=== PATIENT | female | born 1980 | race Caucasian/White ===

== ENCOUNTER → 2017-12-22 | Outpatient (CLI) | payer OTHER ==
[~2017-12-22] MED LIST: ISOVUE-370 76% 100ML VIAL (Q9967) As Ordered
== END ==
LOC: M RAD 08:42
DX: R10.9 Unspecified abdominal pain (principal)

== ENCOUNTER 2024-07-29 13:11 | Inpatient (IN) | payer MEDICAID, OTHER, SELFPAY ==
[~2024-07-29] VITALS: Ht 167.6 cm; Wt 94.9 kg
[2024-07-29 13:53] LABS: HEMATOCRIT 42.7 % (36.0-47.0); HEMOGLOBIN 14.9 g/dl (12.0-15.5); MEAN CORPUSCULAR HEMOGLOBIN 30.7 pg (27.0-33.0); MEAN CORPUSCULAR HGB CONC 34.9 g/dl (32.0-36.5); MEAN CORPUSCULAR VOLUME 87.9 fl (80.0-96.0); PLATELET COUNT, AUTOMATED 428 10^3/uL (150-450); RED BLOOD COUNT 4.86 10^6/uL (4.00-5.40); WHITE BLOOD COUNT 15.1 10^3/uL (4.0-10.0)
[2024-07-29 14:16] LABS: ETHYL ALCOHOL (ETHANOL) 0.003 % (0.000-0.010)
[2024-07-29 14:18] LABS: ALBUMIN 4.3 G/DL (3.2-5.2); ALKALINE PHOSPHATASE 79 U/L (46-116); ALT/SGPT 20 U/L (7.0-40); AST/SGOT 25 U/L (<34); BILIRUBIN,DIRECT 0.1 MG/DL (<0.4); BILIRUBIN,TOTAL 0.4 MG/DL (0.3-1.2); BLOOD UREA NITROGEN 18 MG/DL (9-23); CARBON DIOXIDE LEVEL 25 MMOL/L (20-31); CHLORIDE LEVEL 107 MMOL/L (98-107); CREATININE FOR GFR 1.03 MG/DL (0.55-1.30); GLOMERULAR FILTRATION RATE > 60.0 (>58); GLUCOSE, FASTING 109 MG/DL (60-100); POTASSIUM SERUM 4.3 MMOL/L (3.5-5.1); SALICYLATE LEVEL < 3.0 MG/DL (<30); SODIUM LEVEL 138 MMOL/L (136-145); TOTAL PROTEIN 7.7 G/DL (5.7-8.2)
[2024-07-29 14:22] LABS: THYROID STIMULATING HORMONE 3.688 uIU/ML (0.55-4.78)
[2024-07-29 15:19] LABS: AMPHETAMINES LEVEL URINE NEGATIVE (NEGATIVE); BARBITURATES URINE NEGATIVE (NEGATIVE); COCAINE METABOLITE URINE NEGATIVE (NEGATIVE)
[2024-07-29 15:20] LABS: BENZODIAZEPINES URINE NEGATIVE (NEGATIVE); CANNABINOIDS URINE NEGATIVE (NEGATIVE); METHADONE URINE NEGATIVE (NEGATIVE); OPIATES URINE NEGATIVE (NEGATIVE); PHENCYCLIDINE URINE NEGATIVE (NEGATIVE)
[2024-07-29] MEDS ORDERED: HOME MED LIST COMPLETE! XX SCH (16:00)
[2024-07-29] MEDS: CIPROFLOXACIN 500MG TABLET PO ONE (16:31)
[2024-07-29] MEDS: PHENAZOPYRIDINE 100 MG TAB PO ONE (16:31)
[2024-07-29] MEDS ORDERED: ACETAMINOPHEN TAB 650MG DOSE (2X325MG) PO PRN (20:10)
[2024-07-29] MEDS ORDERED: IBUPROFEN 400MG TAB PO PRN (20:10)
[2024-07-29] MEDS ORDERED: MAALOX 30 ML SUSP *UDC PO PRN (20:10)
[2024-07-29] MEDS ORDERED: MOM 30ML SUSPENSION UDC PO PRN (20:10)
[2024-07-30] MEDS: diphenhydrAMINE 25MG CAP PO PRN (02:49)
[2024-07-30] MEDS: traZODone 50 MG TAB PO PRN (02:49)
[2024-07-30 08:27] VITALS: BP 149/68; TEMP 97.8; O2SAT 95
[2024-07-30] MEDS: CEFDINIR 300 MG CAP (OMNICEF) PO SCH (09:42)
[2024-07-30 15:58] VITALS: BP 124/60; TEMP 97.7; O2SAT 98
[2024-07-30] MEDS: OLANZapine 5 MG TAB PO SCH (20:32)
[2024-07-30] MEDS: OLANZapine ORAL DISINTEGRATING TAB 5MG PO PRN (21:16)
[2024-07-31 06:24] VITALS: BP 151/65; TEMP 97.3; O2SAT 99
[2024-07-31 16:03] VITALS: BP 116/58; TEMP 98.9; O2SAT 97
[2024-08-01 06:23] VITALS: BP 141/77; TEMP 98.4; O2SAT 97
[2024-08-01] MEDS ORDERED: CEFD300CAP PO (09:03)
[2024-08-01] MEDS ORDERED: TRAZ-252 PO (09:03)
[2024-08-01] MEDS ORDERED: OLAN1TAB16 PO (09:03)
[2024-08-01] MEDS ORDERED: HYDR-3363 PO (09:03)
== END 2024-08-01 11:30 | disposition home or self-care (01) | DRG 751 ==
LOC: M ED 13:11 → M ED INP 20:09 → M PSY 21:02
PROVIDERS: ADMIT Psychiatry & Neurology Psychiatry; ATTEND Psychiatry & Neurology Psychiatry
DX: F29 Unspecified psychosis not due to a substance or known physiological condition (principal); R45.851 Suicidal ideations; N39.0 Urinary tract infection, site not specified; F17.200 Nicotine dependence, unspecified, uncomplicated; K58.1 Irritable bowel syndrome with constipation; Z90.79 Acquired absence of other genital organ(s)

== ENCOUNTER 2024-08-20 21:13 | Emergency (ER) | payer MEDICAID, OTHER ==
[~2024-08-20] VITALS: Ht 165.1 cm; Wt 103.9 kg
[~2024-08-20 21:13] MED LIST changes: +CEFD300CAP PO; +HYDR-3363 PO; -ISOVUE-370 76% 100ML VIAL (Q9967) As Ordered; +OLAN1TAB16 PO; +TRAZ-252 PO
[2024-08-20 21:16] VITALS: BP 141/75; TEMP 97.5; O2SAT 97
[2024-08-20] MEDS ORDERED: GABA-1172 PO (22:44)
[2024-08-20] MEDS ORDERED: VIST25CA PO (22:44)
[2024-08-20] MEDS ORDERED: QUET300T2 PO (22:44)
[2024-08-20] MEDS ORDERED: TRAZ-257 PO (22:44)
[2024-08-20] MEDS ORDERED: CITA20TA6 PO (22:44)
[2024-08-20] MEDS ORDERED: PRAZ2CAP PO (22:44)
[2024-08-20] MEDS ORDERED: CITA10TA7 PO (22:44)
[2024-08-20] MEDS: LORazepam 1 MG TAB PO ONE (23:50)
[2024-08-21] MEDS ORDERED: OLAN1TAB16 PO (01:26)
[2024-08-21] MEDS ORDERED: TRAZ-252 PO (01:26)
[2024-08-21] MEDS ORDERED: HYDR-3363 PO (01:26)
== END 2024-08-21 01:40 | disposition home or self-care (01) ==
LOC: M ED 21:13
DX: F41.9 Anxiety disorder, unspecified (principal); F32.A Depression, unspecified; F31.9 Bipolar disorder, unspecified; F43.10 Post-traumatic stress disorder, unspecified; G43.909 Migraine, unspecified, not intractable, without status migrainosus; F17.200 Nicotine dependence, unspecified, uncomplicated

== ENCOUNTER 2024-08-27 16:53 | Emergency (ER) | payer OTHER ==
[~2024-08-27] VITALS: Ht 165.1 cm; Wt 105.5 kg
[~2024-08-27 16:53] MED LIST changes: +CITA10TA7 PO; +CITA20TA6 PO; +GABA-1172 PO; +PRAZ2CAP PO; +QUET300T2 PO; +TRAZ-257 PO; +VIST25CA PO
[2024-08-27 16:57] VITALS: BP 129/73; TEMP 96.1; O2SAT 95
== END 2024-08-27 19:52 | disposition left against medical advice (07) ==
LOC: M ED 16:53
DX: Z53.21 Procedure and treatment not carried out due to patient leaving prior to being seen by health care provider (principal)

== ENCOUNTER 2024-11-13 14:18 | Inpatient (IN) | payer OTHER ==
[~2024-11-13] VITALS: Ht 165.1 cm; Wt 106.1 kg
[2024-11-13] MEDS ORDERED: LURA40TA2 PO (14:40)
[2024-11-13] MEDS ORDERED: QUET100T2 PO (14:40)
[2024-11-13] MEDS ORDERED: CLON0.5T2 PO (14:40)
[2024-11-13 15:11] LABS: HEMATOCRIT 38.7 % (36.0-47.0); HEMOGLOBIN 13.1 g/dl (12.0-15.5); MEAN CORPUSCULAR HEMOGLOBIN 30.1 pg (27.0-33.0); MEAN CORPUSCULAR HGB CONC 33.9 g/dl (32.0-36.5); PLATELET COUNT, AUTOMATED 374 10^3/uL (150-450); RED BLOOD COUNT 4.35 10^6/uL (4.00-5.40); WHITE BLOOD COUNT 9.1 10^3/uL (4.0-10.0)
[2024-11-13 15:30] LABS: AMPHETAMINES LEVEL URINE NEGATIVE (NEGATIVE); BARBITURATES URINE NEGATIVE (NEGATIVE); BENZODIAZEPINES URINE NEGATIVE (NEGATIVE); CANNABINOIDS URINE NEGATIVE (NEGATIVE); COCAINE METABOLITE URINE NEGATIVE (NEGATIVE); METHADONE URINE NEGATIVE (NEGATIVE); OPIATES URINE NEGATIVE (NEGATIVE); PHENCYCLIDINE URINE NEGATIVE (NEGATIVE)
[2024-11-13 15:32] LABS: ETHYL ALCOHOL (ETHANOL) 0.006 % (0.000-0.010)
[2024-11-13 15:34] LABS: SALICYLATE LEVEL < 3.0 MG/DL (<30)
[2024-11-13 15:35] LABS: ALBUMIN 3.2 G/DL (3.2-5.2); ALKALINE PHOSPHATASE 112 U/L (35-104); ALT/SGPT 50 U/L (7.0-40); AST/SGOT 55 U/L (<34); BILIRUBIN,DIRECT 0.1 MG/DL (<0.4); BILIRUBIN,TOTAL 0.3 MG/DL (0.3-1.2); BLOOD UREA NITROGEN 8 MG/DL (9-23); CALCIUM LEVEL 8.8 MG/DL (8.5-10.1); CARBON DIOXIDE LEVEL 26 MMOL/L (20-31); CHLORIDE LEVEL 106 MMOL/L (98-107); CREATININE FOR GFR 0.78 MG/DL (0.55-1.30); GLOMERULAR FILTRATION RATE > 60.0 (>58); GLUCOSE, FASTING 116 MG/DL (60-100); POTASSIUM SERUM 3.7 MMOL/L (3.5-5.1); SODIUM LEVEL 139 MMOL/L (136-145); TOTAL PROTEIN 6.4 G/DL (5.7-8.2)
[2024-11-13 15:37] LABS: THYROID STIMULATING HORMONE 1.784 uIU/ML (0.55-4.78)
[2024-11-13] MEDS: ACETAMINOPHEN 325 MG TAB PO ONE (15:38)
[2024-11-13] MEDS: clonazePAM 0.5 MG TAB PO ONE (15:38)
[2024-11-13] MEDS ORDERED: HOME MED LIST COMPLETE! XX SCH (16:50)
[2024-11-13] MEDS ORDERED: diphenhydrAMINE 25MG CAP PO PRN (19:25)
[2024-11-13] MEDS ORDERED: ACETAMINOPHEN 325 MG TAB PO PRN (19:25)
[2024-11-13] MEDS ORDERED: MAALOX 30 ML SUSP *UDC PO PRN (19:25)
[2024-11-13] MEDS ORDERED: OLANZapine ORAL DISINTEGRATING TAB 5MG PO PRN (19:25)
[2024-11-13] MEDS ORDERED: MOM 30ML SUSPENSION UDC PO PRN (19:25)
[2024-11-13] MEDS ORDERED: traZODone 50 MG TAB PO PRN (19:25)
[2024-11-13 21:09] VITALS: BP 129/74; TEMP 96.8; O2SAT 95
[2024-11-14] MEDS: IBUPROFEN 400MG TAB PO PRN (02:34)
[2024-11-14 06:32] VITALS: BP 144/83; TEMP 98.2; O2SAT 100
[2024-11-14 09:03] LABS: KETONE, URINE AUTO RFX NEGATIVE (NEGATIVE); LEUKOCYTE ESTERASE UR AUTO RFX NEGATIVE (NEGATIVE); MUCUS, URINE RFX SMALL (NEGATIVE); NITRITE, URINE AUTO RFX NEGATIVE (NEGATIVE); RBC, URINE AUTO RFX 0 /HPF (0-3); SQUAM EPITHELIAL CELL UR AURFX 0 /HPF (0-6); WBC, URINE AUTO RFX 1 /HPF (0-3)
[2024-11-14] MEDS: LURASIDONE HCL 40MG TAB (LATUDA) PO SCH (09:39)
[2024-11-14] MEDS: NICOTINE 14 MG/24 HR TRANSDERMAL TD SCH (09:39)
[2024-11-14 10:47] LABS: CHOLESTEROL LEVEL 271 MG/DL (<200); CHOLESTEROL RISK RATIO 6.37 (<5); HDL CHOLESTEROL 42.5 MG/DL (>40); LDL CHOLESTEROL 181.5 MG/DL (<100); NON-HDL-C 228.5 MG/DL; TRIGLYCERIDES LEVEL 235 MG/DL (<150)
[2024-11-14 14:57] VITALS: BP 148/66; TEMP 97.4; O2SAT 95
[2024-11-14] MEDS: clonazePAM 0.5 MG TAB PO PRN (15:06)
[2024-11-14 18:25] LABS: HEPATITIS B SURFACE ANTIGEN NEGATIVE (NEGATIVE)
[2024-11-14 18:46] LABS: HEPATITIS B CORE ANTIBODY IGM NEGATIVE (NEGATIVE); HEPATITIS C VIRUS ABY INDEX < 0.02 INDEX (<0.8)
[2024-11-14] MEDS: QUEtiapine FUMARATE 50MG TAB PO SCH (20:45)
[2024-11-14] MEDS: PRAZOSIN 1 MG CAP PO SCH (20:45)
[2024-11-15 06:26] VITALS: BP 133/60; TEMP 99; O2SAT 97
[2024-11-15] MEDS: PRAVASTATIN 20 MG TAB PO SCH (08:46)
[2024-11-15 15:10] VITALS: BP 133/75; TEMP 98; O2SAT 95
[2024-11-15 20:07] VITALS: BP 159/80
[2024-11-16 06:33] VITALS: BP 109/57; TEMP 97.4; O2SAT 96
[2024-11-16] MEDS ORDERED: PRAZ1CAP PO (09:03)
[2024-11-16] MEDS ORDERED: QUET50TA4 PO (09:03)
[2024-11-16] MEDS ORDERED: LATU40TA2 PO (09:03)
[2024-11-16] MEDS ORDERED: TRAZ-252 PO (09:03)
[2024-11-16] MEDS ORDERED: PRAV20TA2 PO (09:03)
== END 2024-11-16 11:38 | disposition home or self-care (01) | DRG 753 ==
LOC: M ED 14:18 → M ED INP 19:24 → M PSY 21:09
PROVIDERS: ADMIT Psychiatry & Neurology Neurology; ATTEND Psychiatry & Neurology Psychiatry
DX: F31.30 Bipolar disorder, current episode depressed, mild or moderate severity, unspecified (principal); Z59.00 Homelessness unspecified; Z63.0 Problems in relationship with spouse or partner; R45.851 Suicidal ideations; F17.200 Nicotine dependence, unspecified, uncomplicated; R74.01 Elevation of levels of liver transaminase levels; F41.9 Anxiety disorder, unspecified; K58.9 Irritable bowel syndrome, unspecified; Z79.899 Other long term (current) drug therapy; Z91.018 Allergy to other foods; Z90.49 Acquired absence of other specified parts of digestive tract; Z90.79 Acquired absence of other genital organ(s)

== ENCOUNTER 2025-02-27 19:28 | Inpatient (IN) | payer MEDICAID, OTHER ==
[~2025-02-27] VITALS: Ht 167.6 cm; Wt 111.0 kg
[~2025-02-27 19:28] MED LIST changes: +CLON0.5T2 PO; +LATU40TA2 PO; +LURA40TA2 PO; +PRAV20TA2 PO; +PRAZ1CAP PO; +QUET100T2 PO; +QUET50TA4 PO
[2025-02-27 20:24] LABS: HEMATOCRIT 43.2 % (36.0-47.0); HEMOGLOBIN 14.7 g/dl (12.0-15.5); MEAN CORPUSCULAR HEMOGLOBIN 30.6 pg (27.0-33.0); MEAN CORPUSCULAR VOLUME 89.8 fl (80.0-96.0); PLATELET COUNT, AUTOMATED 448 10^3/uL (150-450); RED BLOOD COUNT 4.81 10^6/uL (4.00-5.40); WHITE BLOOD COUNT 12.1 10^3/uL (4.0-10.0)
[2025-02-27 20:32] LABS: BARBITURATES URINE NEGATIVE (NEGATIVE)
[2025-02-27 20:33] LABS: AMPHETAMINES LEVEL URINE NEGATIVE (NEGATIVE); BENZODIAZEPINES URINE NEGATIVE (NEGATIVE); CANNABINOIDS URINE NEGATIVE (NEGATIVE); COCAINE METABOLITE URINE NEGATIVE (NEGATIVE); METHADONE URINE NEGATIVE (NEGATIVE); OPIATES URINE NEGATIVE (NEGATIVE); PHENCYCLIDINE URINE NEGATIVE (NEGATIVE)
[2025-02-27 20:46] LABS: ETHYL ALCOHOL (ETHANOL) < 0.003 % (0.000-0.010)
[2025-02-27 20:48] LABS: ALBUMIN 3.9 G/DL (3.2-5.2); ALKALINE PHOSPHATASE 107 U/L (35-104); ALT/SGPT 15 U/L (7.0-40); AST/SGOT 29 U/L (<34); BILIRUBIN,DIRECT < 0.1 MG/DL (<0.4); BILIRUBIN,TOTAL 0.3 MG/DL (0.3-1.2); BLOOD UREA NITROGEN 9 MG/DL (9-23); CARBON DIOXIDE LEVEL 25 MMOL/L (20-31); CHLORIDE LEVEL 104 MMOL/L (98-107); CREATININE FOR GFR 0.84 MG/DL (0.55-1.30); GLOMERULAR FILTRATION RATE 86.7 (>58); GLUCOSE, FASTING 121 MG/DL (60-100); POTASSIUM SERUM 4.4 MMOL/L (3.5-5.1); SALICYLATE LEVEL < 3.0 MG/DL (<30); SODIUM LEVEL 137 MMOL/L (136-145); TOTAL PROTEIN 7.6 G/DL (5.7-8.2)
[2025-02-27 20:50] LABS: THYROID STIMULATING HORMONE 1.927 uIU/ML (0.55-4.78)
[2025-02-27] MEDS ORDERED: QUET200T2 PO (22:26)
[2025-02-27] MEDS ORDERED: LURA60TA PO (22:26)
[2025-02-27] MEDS ORDERED: CLON0.5T17 PO (22:26)
[2025-02-27] MEDS ORDERED: HOME MED LIST COMPLETE! XX SCH (22:30)
[2025-02-27] MEDS ORDERED: diphenhydrAMINE 25MG CAP PO PRN (23:20)
[2025-02-27] MEDS ORDERED: IBUPROFEN 400MG TAB PO PRN (23:20)
[2025-02-27] MEDS ORDERED: MOM 30ML SUSPENSION UDC PO PRN (23:20)
[2025-02-27] MEDS ORDERED: MAALOX 30 ML SUSP *UDC PO PRN (23:20)
[2025-02-28 04:15] VITALS: BP 142/82; TEMP 97.4; O2SAT 96
[2025-02-28] MEDS ORDERED: OLANZapine ORAL DISINTEGRATING TAB 5MG PO PRN (09:30)
[2025-02-28] MEDS: PRAVASTATIN 20 MG TAB PO SCH (10:08)
[2025-02-28] MEDS: OLANZapine 5 MG TAB PO SCH (10:09)
[2025-02-28 10:22] LABS: HEMOGLOBIN A1c 5.5 % (4.0-6.0)
[2025-02-28 15:43] VITALS: BP 112/68; TEMP 98.2; O2SAT 97
[2025-02-28] MEDS: OLANZapine ORAL DISINTEGRATING TAB 5MG PO PRN (18:36)
[2025-02-28] MEDS: traZODone 50 MG TAB PO PRN (20:47)
[2025-02-28] MEDS: ACETAMINOPHEN 325 MG TAB PO PRN (20:47)
[2025-02-28 20:50] VITALS: BP 126/80
[2025-02-28] MEDS: PRAZOSIN 1 MG CAP PO SCH (20:50)
[2025-02-28] MEDS ORDERED: OLANZapine 10 MG TAB PO SCH (21:00)
[2025-03-01 06:40] VITALS: BP 110/57; TEMP 97.4; O2SAT 96
[2025-03-01] MEDS ORDERED: OLAN1TAB16 PO (11:24)
[2025-03-01] MEDS ORDERED: PRAV20TA2 PO (13:31)
[2025-03-01] MEDS ORDERED: ZYPR5TAB2 PO (14:04)
== END 2025-03-01 14:15 | disposition home or self-care (01) | DRG 756 ==
LOC: M ED 19:28 → M ED INP 23:16 → M PSY 02-28 04:10
PROVIDERS: ADMIT Psychiatry & Neurology Neurology; ATTEND Psychiatry & Neurology Neurology
DX: F41.1 Generalized anxiety disorder (principal); R45.851 Suicidal ideations; F43.10 Post-traumatic stress disorder, unspecified; F90.9 Attention-deficit hyperactivity disorder, unspecified type; Z91.018 Allergy to other foods; F31.9 Bipolar disorder, unspecified; E78.5 Hyperlipidemia, unspecified; E66.9 Obesity, unspecified; G47.00 Insomnia, unspecified; F32.A Depression, unspecified; F17.200 Nicotine dependence, unspecified, uncomplicated; Z59.00 Homelessness unspecified; Z79.899 Other long term (current) drug therapy

== ENCOUNTER 2025-03-22 18:33 | Inpatient (IN) | payer MEDICAID, OTHER ==
[~2025-03-22] VITALS: Ht 167.6 cm; Wt 108.0 kg
[~2025-03-22 18:33] MED LIST changes: +CLON0.5T17 PO; +LURA60TA PO; +QUET200T2 PO; +ZYPR5TAB2 PO
[2025-03-22 19:50] LABS: HEMOGLOBIN 14.7 g/dl (12.0-15.5); MEAN CORPUSCULAR HEMOGLOBIN 30.6 pg (27.0-33.0); MEAN CORPUSCULAR HGB CONC 34.2 g/dl (32.0-36.5); MEAN CORPUSCULAR VOLUME 89.6 fl (80.0-96.0); PLATELET COUNT, AUTOMATED 501 10^3/uL (150-450); WHITE BLOOD COUNT 20.4 10^3/uL (4.0-10.0)
[2025-03-22 20:10] LABS: KETONE, URINE AUTO RFX 1+ mg/dL (NEGATIVE); LEUKOCYTE ESTERASE UR AUTO RFX TRACE (NEGATIVE); MUCUS, URINE RFX SMALL (NEGATIVE); NITRITE, URINE AUTO RFX POSITIVE (NEGATIVE); RBC, URINE AUTO RFX 2 /HPF (0-3); SQUAM EPITHELIAL CELL UR AURFX 4 /HPF (0-6); WBC, URINE AUTO RFX 7 /HPF (0-3)
[2025-03-22 20:13] LABS: BARBITURATES URINE NEGATIVE (NEGATIVE); BENZODIAZEPINES URINE NEGATIVE (NEGATIVE); CANNABINOIDS URINE NEGATIVE (NEGATIVE); COCAINE METABOLITE URINE NEGATIVE (NEGATIVE); METHADONE URINE NEGATIVE (NEGATIVE); OPIATES URINE NEGATIVE (NEGATIVE); PHENCYCLIDINE URINE NEGATIVE (NEGATIVE)
[2025-03-22 20:15] LABS: AMPHETAMINES LEVEL URINE POSITIVE (NEGATIVE); ETHYL ALCOHOL (ETHANOL) < 0.003 % (0.000-0.010)
[2025-03-22 20:17] LABS: ALBUMIN 4.5 G/DL (3.2-5.2); ALKALINE PHOSPHATASE 95 U/L (35-104); ALT/SGPT 31 U/L (7.0-40); AST/SGOT 130 U/L (<34); BILIRUBIN,DIRECT 0.2 MG/DL (<0.4); BILIRUBIN,TOTAL 0.8 MG/DL (0.3-1.2); BLOOD UREA NITROGEN 20 MG/DL (9-23); CALCIUM LEVEL 9.5 MG/DL (8.5-10.1); CARBON DIOXIDE LEVEL 20 MMOL/L (20-31); CHLORIDE LEVEL 104 MMOL/L (98-107); CREATININE FOR GFR 1.32 MG/DL (0.55-1.30); GLOMERULAR FILTRATION RATE 50.4 (>58); GLUCOSE, FASTING 87 MG/DL (60-100); POTASSIUM SERUM 4.2 MMOL/L (3.5-5.1); SALICYLATE LEVEL < 3.0 MG/DL (<30); SODIUM LEVEL 140 MMOL/L (136-145)
[2025-03-22 20:19] LABS: THYROID STIMULATING HORMONE 3.337 uIU/ML (0.55-4.78)
[2025-03-22] MEDS: cefTRIAXone SOD 2 GM in DEXTROSE 5% (D5W) ADV/MINI-BAG 50 ML IV ONE (20:58)
[2025-03-22] MEDS: NS (Normal Saline) 0.9% 1,000 ML IV ONE (20:59)
[2025-03-22] MEDS ORDERED: CLON0.5T2 PO (22:59)
[2025-03-22] MEDS ORDERED: OLAN1TAB16 PO (22:59)
[2025-03-22] MEDS ORDERED: LEXA1TAB2 PO (23:01)
[2025-03-22] MEDS ORDERED: HOME MED LIST COMPLETE! XX SCH (23:05)
[2025-03-22] MEDS ORDERED: ACETAMINOPHEN 325 MG TAB PO PRN (23:10)
[2025-03-22] MEDS ORDERED: MAALOX 30 ML SUSP *UDC PO PRN (23:10)
[2025-03-23] MEDS: PRAZOSIN 1 MG CAP PO SCH ×2 (00:03→21:20)
[2025-03-23] MEDS: OLANZapine 5 MG TAB PO SCH ×2 (00:03→21:20)
[2025-03-23] MEDS: CIPROFLOXACIN 500MG TABLET PO SCH (00:03)
[2025-03-23] MEDS: traZODone 100 MG TAB PO SCH ×2 (00:04→21:20)
[2025-03-23] MEDS: NICOTINE 14 MG/24 HR TRANSDERMAL TD SCH (09:00)
[2025-03-23] MEDS ORDERED: ESCITALOPRAM OXALATE 10 MG TAB PO SCH (09:00)
[2025-03-23] MEDS ORDERED: diphenhydrAMINE 25MG CAP PO PRN (10:45)
[2025-03-23] MEDS ORDERED: ACETAMINOPHEN 325 MG TAB PO PRN (10:45)
[2025-03-23] MEDS ORDERED: LORazepam 1 MG TAB PO PRN (10:45)
[2025-03-23] MEDS ORDERED: OLANZapine 5 MG TAB PO PRN (10:45)
[2025-03-23] MEDS ORDERED: MAALOX 30 ML SUSP *UDC PO PRN (10:45)
[2025-03-23] MEDS ORDERED: MOM 30ML SUSPENSION UDC PO PRN (10:45)
[2025-03-23] MEDS ORDERED: clonazePAM 0.5 MG TAB PO PRN (10:45)
[2025-03-23] MEDS ORDERED: traZODone 50 MG TAB PO PRN (10:45)
[2025-03-23 15:12] VITALS: BP 135/63; TEMP 97.1; O2SAT 95
[2025-03-23] MEDS: OLOPATADINE 0.1% OPHTH SOL 5ML OU SCH (16:58)
[2025-03-24 07:10] VITALS: BP 107/52; TEMP 97.2; O2SAT 96
[2025-03-24] MEDS: LACTOBACILLUS ACIDOPHILUS CAP PO SCH (08:57)
[2025-03-24] MEDS: ESCITALOPRAM OXALATE 10 MG TAB PO SCH (08:57)
[2025-03-24] MEDS: CEFDINIR 300 MG CAP PO SCH (08:57)
[2025-03-24 16:12] VITALS: BP 130/62; TEMP 97.4; O2SAT 97
[2025-03-24 20:42] VITALS: BP 131/73
[2025-03-25 07:09] VITALS: BP 133/60; TEMP 97.2; O2SAT 96
[2025-03-25] MEDS ORDERED: LEXA1TAB PO (12:39)
== END 2025-03-25 14:18 | disposition home or self-care (01) | DRG 753 ==
LOC: M ED 18:33 → M ED INP 03-23 10:41 → M PSY 03-23 14:29
PROVIDERS: ADMIT Internal Medicine; ATTEND Internal Medicine
DX: F31.9 Bipolar disorder, unspecified (principal); F43.10 Post-traumatic stress disorder, unspecified; R45.851 Suicidal ideations; N39.0 Urinary tract infection, site not specified; F90.9 Attention-deficit hyperactivity disorder, unspecified type; K58.1 Irritable bowel syndrome with constipation; F17.210 Nicotine dependence, cigarettes, uncomplicated; E78.5 Hyperlipidemia, unspecified; E66.9 Obesity, unspecified; G47.00 Insomnia, unspecified; Z90.79 Acquired absence of other genital organ(s); Z79.899 Other long term (current) drug therapy; Z91.018 Allergy to other foods

== ENCOUNTER 2025-06-08 10:23 | Inpatient (IN) | payer OTHER, MEDICAID ==
[~2025-06-08] VITALS: Ht 167.6 cm; Wt 90.7 kg
[~2025-06-08 10:23] MED LIST changes: +LEXA1TAB PO; +LEXA1TAB2 PO; -PRAV20TA2 PO; +PRAV20TA78 PO
[2025-06-08] MEDS ORDERED: MAALOX 30 ML SUSP *UDC PO PRN (13:15)
[2025-06-08] MEDS ORDERED: MOM 30 ML SUSPENSION UDC PO PRN (13:15)
[2025-06-08] MEDS ORDERED: ACETAMINOPHEN 325 MG TAB PO PRN (13:15)
[2025-06-08] MEDS ORDERED: IBUPROFEN 400 MG TAB PO PRN (13:15)
[2025-06-08] MEDS ORDERED: ADDE10CA3 PO (14:06)
[2025-06-08] MEDS ORDERED: HOME MED LIST COMPLETE! XX SCH (14:10)
[2025-06-08] MEDS: PRAZOSIN 1 MG CAP PO SCH (20:38)
[2025-06-08] MEDS: traZODone 50 MG TAB PO PRN (20:39)
[2025-06-09] MEDS: ESCITALOPRAM OXALATE 10 MG TABLET PO SCH (09:13)
[2025-06-09] MEDS ORDERED: PILL CUTTER 1 EACH XX PRN (11:35)
[2025-06-09] MEDS: ESCITALOPRAM OXALATE 5 MG TABLET PO ONE (11:36)
[2025-06-10 06:36] VITALS: BP 124/56; TEMP 97.3; O2SAT 100
[2025-06-10] MEDS: ESCITALOPRAM OXALATE 10 MG TABLET PO SCH (08:44)
[2025-06-10 16:22] VITALS: BP 129/58; TEMP 98; O2SAT 97
[2025-06-10 20:08] VITALS: BP 123/68
[2025-06-11 06:26] VITALS: BP 114/69; TEMP 98; O2SAT 97
[2025-06-11] MEDS ORDERED: TRAZ-252 PO ×2 (09:02→09:59)
[2025-06-11] MEDS ORDERED: LEXA5TAB13 PO ×2 (09:02→09:59)
[2025-06-11] MEDS ORDERED: ABIL1TAB11 PO ×2 (09:02→09:59)
[2025-06-11] MEDS ORDERED: PRAZ2CAP PO ×2 (09:02→09:59)
[2025-06-11] MEDS ORDERED: ABIL1INJ2 IM ×2 (09:02→09:59)
[2025-06-11] MEDS: ARIPiprazole MONOHYDRATE 400 MG INJ (FREE PSY INPT ONLY) IM ONE (12:11)
== END 2025-06-11 11:59 | disposition home or self-care (01) | DRG 750 ==
LOC: M ED 10:23 → M ED INP 13:14 → M PSY 15:31
PROVIDERS: ADMIT General Practice; ATTEND Psychiatry & Neurology Psychiatry
DX: F25.0 Schizoaffective disorder, bipolar type (principal); G70.9 Myoneural disorder, unspecified; R45.851 Suicidal ideations; K31.84 Gastroparesis; F60.3 Borderline personality disorder; K58.9 Irritable bowel syndrome, unspecified; F17.210 Nicotine dependence, cigarettes, uncomplicated; Z91.148 Patient's other noncompliance with medication regimen for other reason; Z91.414 Personal history of adult intimate partner abuse; Z79.899 Other long term (current) drug therapy; Z91.52 Personal history of nonsuicidal self-harm; Z56.0 Unemployment, unspecified